=== PATIENT | female | born 1995 | race Two or more races ===

== ENCOUNTER → 2021-08-05 | Day surgery (SDC) | payer BC ==
[~2021-08-05] VITALS: Ht 175.3 cm; Wt 104.0 kg
[~2021-08-05] MED LIST: ADAL40PE SQ; EPINEPHrine SYRINGE 1 MG/10 ML SYRINGE. IV ONE; EPINEPHrine SYRINGE 1 MG/10 ML SYRINGE. SQ ONE; IV NORMAL SALINE 500ML BAG 500 ML IV ONE; LIDOCAINE 2% PF 5 ML VIAL. ONE; PROPOFOL 10 MG/ML (20ML) VIAL. IV ONE; SPIR100T4 PO
--- NOTE | 2021-08-05 13:28 | PHYS DOC ---
Past Medical History Additional Past Medical Histor: Heather's Past Surgical History: No Surgical History General Adult EDM: Chief Complaint: GI PROBLEM HPI: HPI: Patient is a 26 year old female with history of Crohn's disease status post bowel resection with history of ileocolonic anastomosis bleed who presents with several episodes of hematochezia. Reports 9 frankly bloody stools starting last night at 10 PM. Denies any abdominal pain, fever, chills. No emesis or nausea. Has been in contact with her GI specialist who is directed her to the emergency department. She is not on any blood thinners or antiplatelet medications. Denies any chest pain, shortness of breath, or syncope/presyncope. She has taken 7 caps of MiraLAX and 1 dose of magnesium citrate prior to arrival for directed bowel prep. Review of Systems: Review of Systems: Constitutional: Denies fever or chills. [] Eyes: Denies change in visual acuity. [] HENT: Denies nasal congestion or sore throat. [] Respiratory: Denies cough or shortness of breath. [] Cardiovascular: Denies chest pain or edema. [] GI: Denies abdominal pain, nausea, vomiting. Reports bloody stools. : Denies dysuria. [] Musculoskeletal: Denies back pain or joint pain. [] Integument: Denies rash. [] Neurologic: Denies headache, focal weakness or sensory changes. [] Psychiatric: Denies depression or anxiety. [] Heart Score: C/O Chest Pain: No Allergies: Allergies: Allergies Coded Allergies Type Severity Reaction Last Updated Verified Sulfa (Sulfonamide Antibiotics) Allergy Unknown 08/05/21 Yes Physical Exam: PE: Constitutional: Well developed, well nourished, no acute distress, non-toxic appearance. [] HENT: Normocephalic, atraumatic, bilateral external ears normal, oropharynx moist, no oral exudates, nose normal. [] Eyes: PERRLA, EOMI, conjunctiva normal, no discharge. [] Neck: Normal range of motion, no tenderness, supple, no stridor. [] Cardiovascular:Mild tachycardia, regular. Lungs & Thorax: Bilateral breath sounds clear to auscultation [] Abdomen: Bowel sounds normal, soft, no tenderness, no masses, no pulsatile masses. [] Skin: Warm, dry, no erythema, no rash. [] Extremities: No tenderness, no cyanosis, no clubbing, ROM intact, no edema. [] Neurologic: Alert and oriented X 3, normal motor function, normal sensory function, no focal deficits noted. [] Current Patient Data: Vital Signs: Vital Signs Date Time Temp Pulse Resp B/P (MAP) Pulse Ox O2 Delivery O2 Flow Rate FiO2 08/05/21 13:05 98.1 109 18 127/92 (104) 8 Room Air 98.1 EKG: EKG: [] Radiology/Procedures: Radiology/Procedures: [] Course & Med Decision Making: Course & Med Decision Making Pertinent Labs and Imaging studies reviewed. (See chart for details) Patient a 26-year-old female with history of Crohn's disease, bowel resection, previous ileocolonic anastomotic ulceration who presents with lower GI bleeding. Fortunately, on arrival is hemodynamically stable. Hemoglobin is 12.9. I have spoken with gastroenterology, who plan on a lower colonoscopy. Patient will go directly from ED to endoscopy suite, where determination on need for admission will be made based on procedural findings. [id number] Disclaimer: Lindsey Disclaimer: This electronic medical record was generated, in whole or in part, using a voice recognition dictation system. Departure Departure Impression: Primary Impression: Hematochezia Disposition: 30 STILL A PATIENT Condition: STABLE JAZLYN REILLY MD Aug 05, 2021 13:28
[2021-08-05 14:02] LABS: BASO % 1 % (0-3); EOS % 1 % (0-3); HEMATOCRIT 37.3 % (36.0-47.0); HEMOGLOBIN 12.9 g/dL (12.0-15.5); LYMPH % 35 % (24-48); MEAN CORPUSCULAR HEMOGLOBIN 30 pg (25-35); MEAN CORPUSCULAR HGB CONC 35 g/dL (31-37); MEAN CORPUSCULAR VOLUME 87 fL (79-100); MONO # 0.4 x10^3/uL (0.0-1.1); MONO % 6 % (0-9); NEUT # 3.4 x10^3/uL (1.8-7.7); NEUT % 58 % (31-73); PLATELET COUNT 242 x10^3/uL (140-400); RED BLOOD COUNT 4.29 x10^6/uL (3.50-5.40); RED CELL DISTRIBUTION WIDTH 12.8 % (11.5-14.5); WHITE BLOOD COUNT 5.8 x10^3/uL (4.0-11.0)
[2021-08-05 14:11] LABS: PROTHROMBIN TIME PATIENT 13.2 SEC (11.7-14.0)
[2021-08-05 14:16] LABS: CALCIUM 8.5 mg/dL (8.5-10.1); CREATININE 0.8 mg/dL (0.6-1.0); POTASSIUM 4.5 mmol/L (3.5-5.1)
[2021-08-05 14:22] LABS: ALBUMIN 3.9 g/dL (3.4-5.0); ALBUMIN/GLOBULIN RATIO 1.1 (1.0-1.7); TOTAL BILIRUBIN 0.7 mg/dL (0.2-1.0); TOTAL PROTEIN 7.5 g/dL (6.4-8.2)
--- NOTE | 2021-08-05 15:31 | PDOC2 ---
CONSULT Date of Consult Date of Consult DATE: 08/05/21 TIME: 15:26 Reason for Consult Reason for Consult: Repetitive episodes of rectal bleeding History of Present Illness Reason for Visit: This is a 26-year-old female who has a history of Crohn's disease. In the past she had a right hemicolectomy and has been on Humira injections for several years. Once in the past she had a brisk lower GI bleed that came from an anastomotic ulcer which required endoscopic treatment. She has had no bleeding for many years but last night and this morning she developed recurrent hematochezia which did not resolve. She took some magnesium citrate but continued to have bloody bowel movements up to 9 or 10 before presenting to the emergency room. She had some lightheadedness but no obvious orthostatic changes. Since it was apparent the bleeding was not going to stop, I recommended that she come to the emergency room where we would assess her and consider urgent colonoscopy with therapeutics. Past Medical History GI: Inflam bowel disease (Crohns) Past Surgical History Past Surgical History: Colon Resection Current Problem List Problem List Problems Medical Problems: (1) Hematochezia Status: Acute Current Medications Current Medications Current Medications Sodium Chloride 500 ml @ 500 mls/hr 1X ONCE IV Last administered on 08/05/21at 14:17; Start 08/05/21 at 13:30; Stop 08/05/21 at 14:29; Status DC Propofol (Diprivan) 200 mg STK-MED ONCE IV ; Start 08/05/21 at 15:03; Stop 08/05/21 at 15:03; Status DC Lidocaine HCl (Lidocaine Pf 2% Vial) 5 ml STK-MED ONCE .ROUTE ; Start 08/05/21 at 15:03; Stop 08/05/21 at 15:03; Status DC Allergies Allergies: Coded Allergies: Sulfa (Sulfonamide Antibiotics) (Verified Allergy, Unknown, 08/05/21) Physical Exam General: Alert, Oriented X3 HEENT: Atraumatic Lungs: Clear to auscultation Heart: Regular rate, Normal S1, Normal S2 Abdomen: Normal bowel sounds, Soft, No tenderness, No hepatosplenomegaly, No masses Extremities: No clubbing, No cyanosis Neuro: Normal gait, Normal speech Psych/Mental Status: Mental status NL Vitals VITALS Vital Signs Date Time Temp Pulse Resp B/P (MAP) Pulse Ox O2 Delivery O2 Flow Rate FiO2 2/5/22 13:05 98.1 109 18 127/92 (104) 8 Room Air 98.1 Labs Labs Laboratory Tests Test 08/05/21 13:21 08/05/21 13:50 Bedside Urine HCG, Qualitative Hcg negative (Negative) White Blood Count 5.8 x10^3/uL (4.0-11.0) Red Blood Count 4.29 x10^6/uL (3.50-5.40) Hemoglobin 12.9 g/dL (12.0-15.5) Hematocrit 37.3 % (36.0-47.0) Mean Corpuscular Volume 87 fL (79-100) Mean Corpuscular Hemoglobin 30 pg (25-35) Mean Corpuscular Hemoglobin Concent 35 g/dL (31-37) Red Cell Distribution Width 12.8 % (11.5-14.5) Platelet Count 242 x10^3/uL (140-400) Neutrophils (%) (Auto) 58 % (31-73) Lymphocytes (%) (Auto) 35 % (24-48) Monocytes (%) (Auto) 6 % (0-9) Eosinophils (%) (Auto) 1 % (0-3) Basophils (%) (Auto) 1 % (0-3) Neutrophils # (Auto) 3.4 x10^3/uL (1.8-7.7) Lymphocytes # (Auto) 2.0 x10^3/uL (1.0-4.8) Monocytes # (Auto) 0.4 x10^3/uL (0.0-1.1) Eosinophils # (Auto) 0.0 x10^3/uL (0.0-0.7) Basophils # (Auto) 0.0 x10^3/uL (0.0-0.2) Prothrombin Time 13.2 SEC (11.7-14.0) Prothromb Time International Ratio 1.0 (0.8-1.1) Sodium Level 138 mmol/L (136-145) Potassium Level 4.5 mmol/L (3.5-5.1) Chloride Level 103 mmol/L (98-107) Carbon Dioxide Level 27 mmol/L (21-32) Anion Gap 8 (6-14) Blood Urea Nitrogen 10 mg/dL (7-20) Creatinine 0.8 mg/dL (0.6-1.0) Estimated GFR (Cockcroft-Gault) 86.0 BUN/Creatinine Ratio 13 (6-20) Glucose Level 103 mg/dL (70-99) Calcium Level 8.5 mg/dL (8.5-10.1) Total Bilirubin 0.7 mg/dL (0.2-1.0) Aspartate Amino Transf (AST/SGOT) 21 U/L (15-37) Alanine Aminotransferase (ALT/SGPT) 38 U/L (14-59) Alkaline Phosphatase 82 U/L (46-116) Total Protein 7.5 g/dL (6.4-8.2) Albumin 3.9 g/dL (3.4-5.0) Albumin/Globulin Ratio 1.1 (1.0-1.7) Laboratory Tests Test 08/05/21 13:21 08/05/21 13:50 Bedside Urine HCG, Qualitative Hcg negative (Negative) White Blood Count 5.8 x10^3/uL (4.0-11.0) Red Blood Count 4.29 x10^6/uL (3.50-5.40) Hemoglobin 12.9 g/dL (12.0-15.5) Hematocrit 37.3 % (36.0-47.0) Mean Corpuscular Volume 87 fL (79-100) Mean Corpuscular Hemoglobin 30 pg (25-35) Mean Corpuscular Hemoglobin Concent 35 g/dL (31-37) Red Cell Distribution Width 12.8 % (11.5-14.5) Platelet Count 242 x10^3/uL (140-400) Neutrophils (%) (Auto) 58 % (31-73) Lymphocytes (%) (Auto) 35 % (24-48) Monocytes (%) (Auto) 6 % (0-9) Eosinophils (%) (Auto) 1 % (0-3) Basophils (%) (Auto) 1 % (0-3) Neutrophils # (Auto) 3.4 x10^3/uL (1.8-7.7) Lymphocytes # (Auto) 2.0 x10^3/uL (1.0-4.8) Monocytes # (Auto) 0.4 x10^3/uL (0.0-1.1) Eosinophils # (Auto) 0.0 x10^3/uL (0.0-0.7) Basophils # (Auto) 0.0 x10^3/uL (0.0-0.2) Prothrombin Time 13.2 SEC (11.7-14.0) Prothromb Time International Ratio 1.0 (0.8-1.1) Sodium Level 138 mmol/L (136-145) Potassium Level 4.5 mmol/L (3.5-5.1) Chloride Level 103 mmol/L (98-107) Carbon Dioxide Level 27 mmol/L (21-32) Anion Gap 8 (6-14) Blood Urea Nitrogen 10 mg/dL (7-20) Creatinine 0.8 mg/dL (0.6-1.0) Estimated GFR (Cockcroft-Gault) 86.0 BUN/Creatinine Ratio 13 (6-20) Glucose Level 103 mg/dL (70-99) Calcium Level 8.5 mg/dL (8.5-10.1) Total Bilirubin 0.7 mg/dL (0.2-1.0) Aspartate Amino Transf (AST/SGOT) 21 U/L (15-37) Alanine Aminotransferase (ALT/SGPT) 38 U/L (14-59) Alkaline Phosphatase 82 U/L (46-116) Total Protein 7.5 g/dL (6.4-8.2) Albumin 3.9 g/dL (3.4-5.0) Albumin/Globulin Ratio 1.1 (1.0-1.7) Assessment/Plan Assessment/Plan Brisk and persistent hematochezia. Although her admitting hemoglobin was 12, likely with fluid hydration and will drop since she has not stopped bleeding. The picture here is similar to what happened to her several years ago where she had brisk bleeding from a anastomotic ulcer requiring intervention at that time. She is not had any other bleeding episodes and has been doing well in terms of treatment of her Crohn's disease with Humira. Plan: Colonoscopy with therapeutics to stop the bleeding FRANCESCO BURTON MD Aug 05, 2021 15:31
[2021-08-05 15:40] VITALS: BP 123/78
[2021-08-05 16:33] VITALS: BP 127/75
== END | disposition home or self-care (01) ==
LOC: ER 13:03 → SURG 15:30
PROVIDERS: ATTEND Internal Medicine Gastroenterology
DX: K62.5 Hemorrhage of anus and rectum (principal); K50.10 Crohn's disease of large intestine without complications; K63.3 Ulcer of intestine; K63.89 Other specified diseases of intestine; Z79.899 Other long term (current) drug therapy; Z98.890 Other specified postprocedural states; Z88.2 Allergy status to sulfonamides
CPT/HCPCS: 36415; 45382; 80053; 81025; 85025; 85610; 86850; 86900; 86901; J0171; J2704; J7040